=== PATIENT | male | born 2005 | race African-American/Black ===

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

== ENCOUNTER 2025-10-23 12:04 | Emergency (ER) | payer SELFPAY | END 2025-10-23 12:55 | disposition home or self-care (01) | LOC: ERS 12:04 | DX: K04.7 Periapical abscess without sinus (principal); K02.9 Dental caries, unspecified; F17.290 Nicotine dependence, other tobacco product, uncomplicated | CPT/HCPCS: 99282 ==